=== PATIENT | female | born 1995 | race American Indian/Alaskan Native ===

== ENCOUNTER 2016-06-18 07:01 | Emergency (ER) | payer SELFPAY ==
[2016-06-18 08:27] LABS: Basophils % (Auto) 0.3 % (0.0-1.8); Eosinophils % (Auto) 0.2 % (0.0-4.3); Hematocrit 40.3 % (30.3-42.9); Hemoglobin 13.4 gm/dl (10.1-14.3); Mean Corpuscular HGB Conc 33 % (30-34); Mean Corpuscular Hemoglobin 32 pg (28-32); Mean Corpuscular Volume 95 fl (79-97); Platelet Count 197 K/mm3 (140-440); Red Blood Count 4.24 M/mm3 (3.65-5.03); Red Cell Distribution Width 13.6 % (13.2-15.2); White Blood Count 8.2 K/mm3 (4.5-11.0)
[2016-06-18 09:54] LABS: Alanine Aminotransferase 13 units/L (7-56); Albumin 4.4 g/dL (3.9-5); Albumin/Globulin Ratio 1.8 %; Alkaline Phosphatase 36 units/L (35-129); Anion Gap 23 mmol/L; Blood Urea Nitrogen 8 mg/dL (7-17); Calcium 9.7 mg/dL (8.4-10.2); Carbon Dioxide 21 mmol/L (22-30); Chloride 101.6 mmol/L (98-107); Glucose 100 mg/dL (65-100); Lipase 15 units/L (13-60); Potassium 3.6 mmol/L (3.6-5.0); Sodium 142 mmol/L (137-145); Total Protein 6.8 g/dL (6.3-8.2)
[2016-06-18] MEDS ORDERED: ZOFRAN ODT PO ONE (10:32)
[2016-06-18] MEDS ORDERED: NORCO 5/325 PO ONE (10:32)
--- NOTE | 2016-06-18 10:39 | Emergency Department Report ---
HPI - General Chief Complaint: Abdominal Pain Time Seen by Provider: 06/18/16 10:26 - HPI HPI: 21-year-old -[place] female states that she started her cycle about 3: 00 yesterday first cycle in the last 4 months. She comes in complaining of mid and lower abdominal pain with nausea and vomiting since about 3:00 she denies any known fever or diarrhea. Patient denies any vaginal discharge prior to cycle she denies any dysuria. He reports she is currently nauseated. ED Past Medical Hx - Past Medical History Hx Asthma: Yes - Surgical History Past Surgical History?: No - Social History Smoking Status: Current Every Day Smoker Substance Use Type: Marijuana - Medications Home Medications: Home Medications Medication Instructions Recorded Confirmed Last Taken Type Nitrofurantoin [place]/M-Cryst 100 mg PO Q12HR #14 capsule 06/18/16 Unknown Rx [Macrobid CAP] ED Review of Systems ROS: Stated complaint: STOMACH PAIN Other details as noted in HPI Constitutional: denies: chills, fever Eyes: denies: eye pain, eye discharge, vision change ENT: denies: ear pain, throat pain Respiratory: denies: cough, shortness of breath, wheezing Gastrointestinal: abdominal pain, nausea, vomiting Genitourinary: denies: urgency, dysuria, discharge Musculoskeletal: denies: back pain, joint swelling, arthralgia Skin: denies: rash, lesions Neurological: denies: headache, weakness, paresthesias Psychiatric: denies: anxiety, depression Hematological/Lymphatic: denies: easy bleeding, easy bruising Physical Exam - Physical Exam Vital Signs: Vital Signs 06/18/16 07:55 Temperature 97.9 F Pulse Rate 63 Respiratory 15 Rate Blood Pressure 103/71 O2 Sat by Pulse 100 Oximetry Physical Exam: GENERAL: Alert and oriented x3, no apparent distress, Normal Gait, atraumatic. HEAD: Head is normocephalic and a-traumatic. EYES: Extra ocular muscles are intact. Pupils are equal, round, and reactive to light and accommodation. NOSE: Nose symetrical, Nontender,Nares appeared normal. MOUTH:Mouth is well hydrated and without lesions. Tonsils nonerythematous or swollen, Uvula midline, Tongue not elevated. Mucous membranes are moist. Posterior pharynx clear, no exudate or lesions. Patent airways. NECK: Supple. Non edematous, No carotid bruits. No lymphadenopathy or thyromegaly. LUNGS: Symetrical with respiration, No wheezing, no rales or crackles, CTAB. HEART: S1, S2 present, regular rate and rhythm without murmur, no rubs, no gallops. ABDOMEN: No organomegaly was noted,Positive bowel sounds, soft, and non- distended. . Nontender to palpation on all Quadrants, NO CVA tenderness. EXTREMITIES/MUSCULOSKELETAL: No cyanosis, clubbing, rash, lesions or edema. Full ROM bilaterally. UE/LE Pulses 2+ bilaterally. LE and UE 5+ strength bilaterally NEUROLOGIC: No focal Deficit, Cranial nerves II through XII are grossly intact. No loss of sensation, No facial droop, Negative rhomberg. PSYCHIATRIC: Mood is congruent with affect, . SKIN: Warm and dry, No lesions, No ulceration or induration present ED Course Vital Signs 06/18/16 07:55 Temperature 97.9 F Pulse Rate 63 Respiratory 15 Rate Blood Pressure 103/71 O2 Sat by Pulse 100 Oximetry - Reevaluation(s) Reevaluation #1: 06/18/16 15:12 Patient reports she feels much better after having IV fluids and Reglan and morphine. ED Medical Decision Making - Lab Data Result diagrams: 06/18/16 08:11 06/18/16 08:11 - Medical Decision Making Patient's been evaluated by this provider in fast track. I discussed the patient that I need to get a sample of her urine to run a urinalysis. Discussed with patient not give her something for nausea as well as pain. Patient verbalized understanding. Critical care attestation.: If time is entered above; I have spent that time in minutes in the direct care of this critically ill patient, excluding procedure time. ED Disposition Clinical Impression: UTI (urinary tract infection) Qualifiers: Urinary tract infection type: site unspecified Hematuria presence: without hematuria Qualified Code(s): N39.0 - Urinary tract infection, site not specified Disposition: DISCHARGED TO HOME OR SELFCARE Is pt being admited?: No Does the pt Need Aspirin: No Condition: Stable Instructions: Abdominal Pain (ED) Additional Instructions: Please take antibiotics as prescribed. Follow up with your primary care provider if symptoms persist or gets worse Prescriptions: Nitrofurantoin [place]/M-Cryst [Macrobid CAP] 100 mg PO Q12HR #14 capsule Forms: Work/School Release Form(ED), Accompanied Note
[2016-06-18 11:36] LABS: Bacteria,Urine 2+ /HPF (Negative); Bilirubin,Urine NEG (Negative); Blood,Urine NEG (Negative); Ketones,Urine 80 mg/dL (Negative); Leukocyte Esterase,Urine SM (Negative); Mucus,Urine 2+ /HPF; Nitrite,Urine POS (Negative); Urobilinogen,Urine < 2.0 mg/dL (<2.0)
[2016-06-18] MEDS ORDERED: NACL 0.9% 1000 ML 1,000 ML IV ONE (13:31)
[2016-06-18] MEDS ORDERED: REGLAN IV ONE (13:31)
[2016-06-18] MEDS ORDERED: MORPHINE IV ONE (13:32)
[2016-06-18 14:57] VITALS: BP 108/70
== END 2016-06-18 15:23 | disposition home or self-care (01) ==
LOC: ED 07:01
DX: N39.0 Urinary tract infection, site not specified (principal); J45.909 Unspecified asthma, uncomplicated; F17.200 Nicotine dependence, unspecified, uncomplicated
CPT/HCPCS: 36415; 80053; 81001; 83690; 84703; 85025; 96361; 96374; 96375; 99283; J2270; J2765; J7030; Q0162